=== PATIENT | male | born 1965 ===

== ENCOUNTER 2018-11-25 17:39 | Emergency (ER) | payer SELFPAY ==
[2018-11-25] MEDS ORDERED: NORCO 7.5/325 PO ONE (18:08)
--- NOTE | 2018-11-25 18:13 | Emergency Department Report ---
ED Male HPI - General Chief complaint: Pain General Stated complaint: HERNIA PAIN Time Seen by Provider: 11/25/18 18:00 Source: patient Mode of arrival: Stretcher Limitations: No Limitations - History of Present Illness Initial comments: 53-year-old male presents to the ED with complaint of right scrotal swelling and pain. Patient states he suspects it is his hernia. Patient reports onset of pain and swelling 2 days ago. MD Complaint: testicle pain, testicle swelling -: days(s) (2) Location: right testicle Radiation: none Severity: moderate Quality: sharp Consistency: constant Improves with: none Worsens with: palpation, movement swelling. denies: fever, nausea/vomiting - Related Data Home Medications Medication Instructions Recorded Confirmed Last Taken Benztropine (Nf) [Cogentin] 0.5 mg PO DAILY 06/10/14 06/10/14 Unknown Haloperidol [Haldol] 2 mg PO BID 06/10/14 06/10/14 Unknown NIFEdipine XL [Procardia Xl] 30 mg PO QDAY 06/10/14 06/10/14 06/08/14 Previous Rx's Medication Instructions Recorded Last Taken Type Ciprofloxacin HCl [Cipro] 500 mg PO BID #20 tablet 11/25/18 Unknown Rx Naproxen [Naprosyn] 500 mg PO BID #20 tablet 11/25/18 Unknown Rx Tramadol HCl [Ultram] 50 mg PO Q6HR PRN #7 tablet 11/25/18 Unknown Rx Allergies Allergy/AdvReac Type Severity Reaction Status Date / Time No Known Allergies Allergy Unverified 11/25/18 17:59 ED Review of Systems ROS: Stated complaint: HERNIA PAIN Other details as noted in HPI Constitutional: denies: chills, fever Gastrointestinal: denies: abdominal pain, nausea, vomiting Genitourinary: testicular pain, testicular mass ED Past Medical Hx - Past Medical History Previous Medical History?: Yes Hx Hypertension: Yes Hx Heart Attack/AMI: Yes Hx Congestive Heart Failure: No Hx Diabetes: No Hx Psychiatric Treatment: Yes (schizophrenia) Hx Asthma: No Hx COPD: No Additional medical history: inguinal hernia - Surgical History Past Surgical History?: Yes Additional Surgical History: hernia repair - Social History Smoking Status: Current Every Day Smoker Substance Use Type: Alcohol, Marijuana - Medications Home Medications: Home Medications Medication Instructions Recorded Confirmed Last Taken Type Benztropine (Nf) [Cogentin] 0.5 mg PO DAILY 06/10/14 06/10/14 Unknown History Haloperidol [Haldol] 2 mg PO BID 06/10/14 06/10/14 Unknown History NIFEdipine XL [Procardia Xl] 30 mg PO QDAY 06/10/14 06/10/14 06/08/14 History Ciprofloxacin HCl [Cipro] 500 mg PO BID #20 tablet 11/25/18 Unknown Rx Naproxen [Naprosyn] 500 mg PO BID #20 tablet 11/25/18 Unknown Rx Tramadol HCl [Ultram] 50 mg PO Q6HR PRN #7 tablet 11/25/18 Unknown Rx ED Physical Exam - General Limitations: No Limitations General appearance: alert, in no apparent distress - Head Head exam: Present: atraumatic, normocephalic - Eye Eye exam: Present: normal appearance - ENT ENT exam: Present: mucous membranes moist - Neck Neck exam: Present: normal inspection - Respiratory Respiratory exam: Present: normal lung sounds bilaterally. Absent: respiratory distress - Cardiovascular Cardiovascular Exam: Present: regular rate, normal rhythm - GI/Abdominal GI/Abdominal exam: Present: soft. Absent: distended, tenderness - exam: Present: scrotal swelling (R-sided) External exam: Absent: erythema, ecchymosis - Extremities Exam Extremities exam: Present: normal inspection - Neurological Exam Neurological exam: Present: alert, oriented X3 - Psychiatric Psychiatric exam: Present: normal affect, normal mood - Skin Skin exam: Present: warm, dry, intact, normal color. Absent: rash ED Course Vital Signs 11/25/18 11/25/18 11/25/18 17:48 17:52 18:00 Temperature 98.2 F Pulse Rate 75 68 Respiratory 16 17 Rate Blood Pressure 166/99 173/92 O2 Sat by Pulse 100 100 94 Oximetry 11/25/18 11/25/18 11/25/18 18:15 18:31 18:45 Temperature Pulse Rate 73 68 69 Respiratory 29 H 17 16 Rate Blood Pressure 173/92 173/92 173/92 O2 Sat by Pulse 96 96 96 Oximetry 11/25/18 11/25/18 11/25/18 19:29 19:31 19:45 Temperature Pulse Rate 68 69 67 Respiratory 13 14 15 Rate Blood Pressure 173/92 173/92 173/92 O2 Sat by Pulse 96 95 96 Oximetry 11/25/18 11/25/1819 20:00 20:15 20:31 Temperature Pulse Rate 67 74 65 Respiratory 14 14 15 Rate Blood Pressure 153/90 153/90 153/90 O2 Sat by Pulse 94 97 95 Oximetry 11/25/18 11/25/18 20:45 21:01 Temperature Pulse Rate 65 72 Respiratory 13 16 Rate Blood Pressure 153/90 146/104 O2 Sat by Pulse 97 97 Oximetry ED Medical Decision Making - Radiology Data Radiology results: report reviewed, image reviewed - Differential Diagnosis hernia, orchitis, epidydimitis Critical care attestation.: If time is entered above; I have spent that time in minutes in the direct care of this critically ill patient, excluding procedure time. ED Disposition Clinical Impression: Orchitis, Hydrocele Disposition: TO HOME OR SELFCARE Is pt being admited?: No Condition: Stable Instructions: Epididymo-orchitis (ED), Hydrocele (ED), Testicle Pain (ED) Prescriptions: Ciprofloxacin HCl [Cipro] 500 mg PO BID #20 tablet Naproxen [Naprosyn] 500 mg PO BID #20 tablet Tramadol HCl [Ultram] 50 mg PO Q6HR PRN #7 tablet PRN Reason: pain Referrals: PRIMARY CARE, [Primary Care Provider] - 3-5 Days LOUISA ROSE MD [Staff Physician] - 3-5 Days Time of Disposition: 20:35
[2018-11-25 20:20] LABS: Bilirubin,Urine NEG (Negative); Blood,Urine NEG (Negative); Color,Urine Straw (Yellow); Mucus,Urine FEW /HPF; Protein,Urine <15 mg/dL mg/dL (Negative); RBC,Urine < 1.0 /HPF (0.0-6.0); Urobilinogen,Urine < 2.0 mg/dL (<2.0)
--- NOTE | 2018-11-25 20:23 | Ultrasound Report ---
FINAL REPORT EXAM: US SCROTUM HISTORY: right scrotal swelling and pain TECHNIQUE: Grayscale, color flow and Doppler waveform imaging of the scrotal contents was performed. Comparison: None FINDINGS: Right scrotum: The right testicle demonstrates homogeneous echogenicity and measures 4.2 centimeters by 2.4 centimet ers x 3.1 centimeters in size. There is no demonstration of a focal mass. There is the appearance of increased flow in the right testicle on color-flow imaging which can be se en with orchitis. Arterial and venous flow is demonstrated in the right testicle utilizing color flow and Doppler wavef orm imaging. There is a large right hydrocele with septations which may changes of acute or chronic periorchitis. The right epididymis head measures 2 centimeters x 1 centimeters x 1.8 centimeters in size and is unr emarkable in appearance. Left scrotum: The left testicle demonstrates homogeneous echogenicity and measures 3.7 centimeters x 2.4 centimeter s x 2.5 centimeters in size. There are 2 small foci of decreased echogenicity in the left testicle th at measure approximately 3 millimeters in size. These are nonspecific in appearance but may represent changes of ectasia of the rete testis. Arterial and venous flow is demonstrated in the left testicle utilizing color flow and Doppler wavefo rm imaging. The left epididymis head measures 1.1 centimeter x 1.4 centimeter x 1.1 centimeter and is unremarkabl e in appearance. IMPRESSION: 1. Findings suggestive of right orchitis and periorchitis with large right hydrocele with septations. 2. No evidence of testicular torsion. 3. Small foci of decreased echogenicity left testicle that may represent changes of ectasia of the re te testis.
[2018-11-25] MEDS ORDERED: ROCEPHIN IM ONE (20:31)
[2018-11-25] MEDS ORDERED: XYLOCAINE 1% MPF 5 mL INFILTRATI ONE (20:31)
[2018-11-25] MEDS ORDERED: ZITHROMAX PO ONE (20:32)
[2018-11-25 21:11] VITALS: BP 146/104
== END 2018-11-25 21:23 | disposition home or self-care (01) ==
LOC: ED 17:39
DX: N45.2 Orchitis (principal); N43.3 Hydrocele, unspecified; I10 Essential (primary) hypertension; I25.2 Old myocardial infarction; F20.9 Schizophrenia, unspecified; F17.200 Nicotine dependence, unspecified, uncomplicated; F12.10 Cannabis abuse, uncomplicated
CPT/HCPCS: 76870; 81001; 96372; 99284; J0696

== ENCOUNTER 2019-02-02 10:44 | Observation (INO) | payer OTHER ==
[2019-02-02] MEDS ORDERED: ASPIRIN PO ONE (10:55)
[2019-02-02] MEDS ORDERED: ZOFRAN IV ONE (11:05)
[2019-02-02] MEDS ORDERED: NITROSTAT SL PRN (11:05)
[2019-02-02] MEDS ORDERED: PEPCID IV ONE (11:05)
[2019-02-02] MEDS ORDERED: SUBLIMAZE IV ONE (11:05)
--- NOTE | 2019-02-02 11:06 | Emergency Department Report ---
ED Chest Pain HPI - General Chief Complaint: Chest Pain Stated Complaint: CHEST PAIN Time Seen by Provider: 02/02/19 10:55 Source: patient, EMS (ems notes not available at time of chart dictation), RN notes reviewed Mode of arrival: Stretcher Limitations: No Limitations - History of Present Illness Initial Comments: This is a 53-year-old gentleman who does not have a local primary care doctor. He does not have a local care program director. His past medical history includes schizophrenia, reportedly maintained on Haldol, Cogentin, heart attack in 1995, coronary artery disease, daily aspirin use, no stent deployed. Patient presents to the emergency room today with complaint of nontraumatic epigastric and substernal chest pain. This started at 4:00 in the morning. There is no shortness of breath. There is no diaphoresis. There is positive nausea, vomiting. Positive daily aspirin use. No cocaine use. No DVT or pulmonary embolus risk factors. Patient given aspirin and nitroglycerin in the field, which reportedly improved his symptoms. Patient still having mild chest pain at this time. It does not radiate. MD Complaint: chest pain -: Gradual, hour(s) Onset: during rest Pain Location: substernal Pain Radiation: none Severity: mild Severity scale (0 -10): 4 Quality: aching Consistency: intermittent Improves With: nitroglycerin, medication-other, rest Worsens With: nothing re: nausea, vomting Treatments Prior to Arrival: aspirin, nitroglycerin Aspirin use within the Past 7 Days: (1) Yes - Related Data On Oral Contraceptives: No Home Medications Medication Instructions Recorded Confirmed Last Taken No Known Home Medications [No 02/02/19 02/02/19 Unknown Reported Home Medications] Allergies Allergy/AdvReac Type Severity Reaction Status Date / Time No Known Allergies Allergy Unverified 11/25/18 17:59 Heart Score - HEART Score History: Moderately suspicious EKG: Non-specific Age: 45-65 Risk factors: 1-2 risk factors Troponin: < normal limit HEART Score: 4 - Critical Actions Critical Actions: 4-6 pts:12-16.6% risk of adverse cardiac event. Should be ad mitted ED Review of Systems ROS: Stated complaint: CHEST PAIN Other details as noted in HPI Constitutional: malaise Eyes: denies: vision change ENT: denies: epistaxis Respiratory: denies: cough Cardiovascular: chest pain Gastrointestinal: nausea Genitourinary: denies: dysuria Musculoskeletal: denies: back pain Skin: denies: lesions Neurological: denies: weakness Psychiatric: denies: anxiety, depression, visual hallucinations, homicidal thoughts, suicidal thoughts ED Past Medical Hx - Past Medical History Previous Medical History?: Yes Hx Hypertension: Yes Hx Heart Attack/AMI: Yes (in 1995 (no stent placed)) Hx Congestive Heart Failure: No Hx Diabetes: No Hx Psychiatric Treatment: Yes (schizophrenia, bipolar) Hx Asthma: No Hx COPD: No Additional medical history: inguinal hernia - Surgical History Past Surgical History?: Yes Additional Surgical History: hernia repair - Social History Smoking Status: Unknown if ever smoked Substance Use Type: None - Medications Home Medications: Home Medications Medication Instructions Recorded Confirmed Last Taken Type No Known Home Medications [No 02/02/19 02/02/19 Unknown History Reported Home Medications] ED Physical Exam - General Limitations: No Limitations General appearance: alert, in no apparent distress - Head Head exam: Present: atraumatic, normocephalic - Eye Eye exam: Present: normal appearance, EOMI. Absent: nystagmus - ENT ENT exam: Present: normal exam, normal orophraynx, mucous membranes moist, normal external ear exam - Neck Neck exam: Present: normal inspection, full ROM. Absent: tenderness, meningismus - Respiratory Respiratory exam: Present: normal lung sounds bilaterally. Absent: respiratory distress - Cardiovascular Cardiovascular Exam: Present: regular rate, normal rhythm, normal heart sounds. Absent: bradycardia, tachycardia, irregular rhythm, systolic murmur, diastolic murmur, rubs, gallop - GI/Abdominal GI/Abdominal exam: Present: soft. Absent: distended, tenderness, guarding, rebound, rigid, pulsatile mass - Rectal Rectal exam: Present: deferred - Extremities Exam Extremities exam: Present: normal inspection, full ROM, other (2+ pulses noted in the bilateral upper, lower extremities. Compartments soft. No long bony tenderness. The pelvis is stable.). Absent: pedal edema, joint swelling, calf tenderness - Back Exam Back exam: Present: normal inspection, full ROM. Absent: tenderness, CVA tenderness (R), CVA tenderness (L), paraspinal tenderness, vertebral tenderness - Neurological Exam Neurological exam: Present: alert, CN II-XII intact, other (Extraocular movements intact. Tongue midline. No facial droop. Facial sensation intact to light touch in the V1, V2, V3 distribution bilaterally. 5 and 5 strength in 4 extremities.. Sensation is intact to light touch in 4 extremities.). Absent: motor sensory deficit - Psychiatric Psychiatric exam: Absent: homicidal ideation, suicidal ideation - Skin Skin exam: Present: warm, dry, intact, normal color. Absent: rash ED Course Vital Signs 02/02/19 02/02/19 10:48 11:38 Temperature 97.6 F Pulse Rate 63 60 Respiratory 14 12 Rate Blood Pressure 160/90 Blood Pressure 149/92 [Left] O2 Sat by Pulse 98 98 Oximetry - Reevaluation(s) Reevaluation #1: 02/02/19 11:47 Differential diagnosis, including but not limited to: GERD, gastritis, hiatal hernia, acute coronary syndrome, pneumonia Assessment and plan: 53-year-old gentleman, reported history of known ischemic cardiac disease, no local care program director, with typical symptoms, including chest pain, nausea, vomiting. He is not tachycardic, he is not hypoxic, he denies DVT, pulmonary embolus risk factors, the patient is low risk by well's criteria. He is given supportive medications in the field, and in the emergency room, and he reports that his chest pain is improved. Screening laboratory studies improved, clinically sober, patient is not psychiatrically decompensated. Recommend admission to the hospital for cardiac risk stratification. We will contact the hospital medicine team to arrange admission once his initial diagnostics have been resulted. Please note that there has been a significant delay in acquisition of the patient's ER EKG, in spite of this provider requesting to multiple nurses for EKG acquisition. His prehospital EKG is nonspecific, but not consistent with ST elevation myocardial infarction. Reevaluation #2: 02/02/19 12:26 Patient sleeping in stretcher, and is in no acute distress. Hospital physician is paged to arrange admission. Discussed with cardiology, Julio Cesar Murillo, whose group will follow in consultation to make recommendations on cardiac risk stratification. Reevaluation #3: 02/02/19 12:49 Dr Olmos to admit Dr Badillo of cardiology in to evaluate patient URIEL score - Uriel Score Age > 65: (0) No Aspirin use within the Past 7 Days: (1) Yes 3 or more CAD Risk Factors: (1) Yes 2 or more Angina events in past 24 hrs: (1) Yes Known CAD with more than 50% Stenosis: (0) No Elevated Cardiac Markers: (0) No ST Deviation Greater than 0.5mm: (0) No URIEL Score: 3 ED Medical Decision Making - Lab Data Result diagrams: 02/02/19 11:05 02/02/19 11:05 Vital Signs - 24 hr 02/02/19 02/02/19 10:48 11:38 Temperature 97.6 F Pulse Rate 63 60 Respiratory 14 12 Rate Blood Pressure 160/90 Blood Pressure 149/92 [Left] O2 Sat by Pulse 98 98 Oximetry Lab Results 02/02/19 Range/Units 11:05 WBC 4.1 L (4.5-11.0) K/mm3 RBC 5.27 H (3.65-5.03) M/mm3 Hgb 12.6 (11.8-15.2) gm/dl Hct 40.4 (35.5-45.6) % MCV 77 L (84-94) fl MCH 24 L (28-32) pg MCHC 31 L (32-34) % RDW 15.9 H (13.2-15.2) % Plt Count 184 (140-440) K/mm3 Lymph % (Auto) 16.8 (13.4-35.0) % Carter % (Auto) 4.2 (0.0-7.3) % Eos % (Auto) 0.1 (0.0-4.3) % Baso % (Auto) 0.7 (0.0-1.8) % Lymph # 0.7 L (1.2-5.4) K/mm3 Carter # 0.2 (0.0-0.8) K/mm3 Eos # 0.0 (0.0-0.4) K/mm3 Baso # 0.0 (0.0-0.1) K/mm3 Seg Neutrophils % 78.2 H (40.0-70.0) % Seg Neutrophils # 3.2 (1.8-7.7) K/mm3 - EKG Data -: EKG Interpreted by Me - EKG Data 02/02/19 12:27 EKG shows sinus bradycardia, normal axis, normal intervals, nonspecific ST abnormality V2, V3, biphasic T-wave in V4, V5, ST depression in V6, abnormal EKG , not consistent with ST elevation myocardial infarction, abnormal EKG. - Radiology Data Radiology results: pending, image reviewed interpreted by me: X-ray the chest, interpreted by me, no acute disease. Critical care attestation.: If time is entered above; I have spent that time in minutes in the direct care of this critically ill patient, excluding procedure time. ED Disposition Clinical Impression: Chest pain, History of coronary artery disease Disposition: OP ADMIT IP TO THIS HOSP Is pt being admited?: Yes Does the pt Need Aspirin: No (aspirin given in the field by EMS) Condition: Stable Instructions: Chest Pain (ED) Referrals: LASHAY MASCORRO MD [Primary Care Provider] - 3-5 Days
[2019-02-02 11:26] LABS: Basophils % (Auto) 0.7 % (0.0-1.8); Eosinophils % (Auto) 0.1 % (0.0-4.3); Hematocrit 40.4 % (35.5-45.6); Hemoglobin 12.6 gm/dl (11.8-15.2); Lymphocytes # (Auto) 0.7 K/mm3 (1.2-5.4); Lymphocytes % (Auto) 16.8 % (13.4-35.0); Mean Corpuscular HGB Conc 31 % (32-34); Mean Corpuscular Volume 77 fl (84-94); Monocytes # (Auto) 0.2 K/mm3 (0.0-0.8); Monocytes % (Auto) 4.2 % (0.0-7.3); Platelet Count 184 K/mm3 (140-440); Red Blood Count 5.27 M/mm3 (3.65-5.03); Red Cell Distribution Width 15.9 % (13.2-15.2)
[2019-02-02 11:54] LABS: BUN/Creatinine Ratio 13; Blood Urea Nitrogen 8 mg/dL (9-20); Calcium 8.9 mg/dL (8.4-10.2); Hemolysis Index 28
--- NOTE | 2019-02-02 11:58 | XRay Report ---
AP CHEST: HISTORY: chest pain AP view of the chest demonstrates a normal mediastinal and cardiac contour with clear lungs and normal bony and soft tissue structures. IMPRESSION: Unremarkable AP chest.
--- NOTE | 2019-02-02 13:34 | Consultation ---
History of Present Illness Consult date: 02/02/19 Requesting physician: CHRISTIANE HUANG Consult reason: chest pain History of present illness: The pt is a 53-year-old male with a past medical history of reported AMI in 1995 with no cath or intervention, HTN, HLP, tobacco use, ETOH use (drinks 12 pack beer a week), schizophrenia. He presented with complaints of chest pain since 4AM today. He describes his chest pain as a sharp intermittent substernal pain. The pain is associated with some nausea and vomiting. He denies any SOB, palpitations, diaphoresis, dizziness or syncope. Past History Past Medical History: acute NV, hypertension, hyperlipidemia Social history: smoking, alcohol abuse Medications and Allergies Allergies Allergy/AdvReac Type Severity Reaction Status Date / Time No Known Allergies Allergy Unverified 11/25/18 17:59 Home Medications Medication Instructions Recorded Confirmed Last Taken Type No Known Home Medications [No 02/02/19 02/02/19 Unknown History Reported Home Medications] Active Meds: Active Medications Nitroglycerin (Nitrostat) 0.4 mg SL .Q5MIN PRN PRN Reason: Chest Pain Review of Systems Constitutional: no weight loss, no weight gain, no fever, no chills, no sweats Ears, nose, mouth and throat: no ear pain, no nose pain, no sinus pressure, no sinus pain Cardiovascular: chest pain, no orthopnea, no palpitations, no rapid/irregular heart beat, no edema, no syncope, no lightheadedness, no shortness of breath, no dyspnea on exertion Respiratory: no cough, no shortness of breath, no dyspnea on exertion, no congestion, no wheezing, no pain on inspiration Gastrointestinal: nausea, vomiting, no abdominal pain, no diarrhea, no constipation, no change in bowel habits Genitourinary Male: no dysuria, no hematuria, no flank pain, no discharge, no urinary frequency, no urinary hesitancy Musculoskeletal: no neck stiffness, no neck pain, no shooting arm pain, no arm numbness/tingling, no low back pain, no shooting leg pain, no leg numbness/tin gling Integumentary: no rash, no pruritis, no redness, no sores, no wounds Neurological: no head injury, no paralysis, no weakness, no parathesias, no numbness, no tingling, no seizures, no syncope Psychiatric: no anxiety Endocrine: no cold intolerance, no heat intolerance Hematologic/Lymphatic: no easy bruising, no easy bleeding Allergic/Immunologic: no urticaria, no wheezing Physical Examination Vital Signs Temp Pulse Resp BP Pulse Ox 97.6 F 63 14 160/90 98 02/02/19 10:48 02/02/19 10:48 02/02/19 10:48 02/02/19 10:48 02/02/19 10:48 General appearance: no acute distress HEENT: Positive: PERRL, Normocephaly, Mucus Membranes Moist Neck: Positive: neck supple, trachea midline Cardiac: Positive: Reg Rate and Rhythm, S1/S2, Systolic Murmur Lungs: Positive: clear to auscultation Neuro: Positive: Grossly Intact, Cranial Nerve 2-12 Intact Abdomen: Positive: Soft. Negative: Tender Skin: Negative: Rash, Wound Musculoskeletal: No Pain Extremities: Absent: edema Results 02/02/19 11:05 02/02/19 11:05 CBC 02/02/19 Range/Units 11:05 WBC 4.1 L (4.5-11.0) K/mm3 RBC 5.27 H (3.65-5.03) M/mm3 Hgb 12.6 (11.8-15.2) gm/dl Hct 40.4 (35.5-45.6) % Plt Count 184 (140-440) K/mm3 Lymph # 0.7 L (1.2-5.4) K/mm3 [place] # 0.2 (0.0-0.8) K/mm3 Eos # 0.0 (0.0-0.4) K/mm3 Baso # 0.0 (0.0-0.1) K/mm3 Comprehensive Metabolic Panel 02/02/19 Range/Units 11:05 Sodium 136 L (137-145) mmol/L Potassium 4.2 (3.6-5.0) mmol/L Chloride 97.8 L (98-107) mmol/L Carbon Dioxide 27 (22-30) mmol/L BUN 8 L (9-20) mg/dL Creatinine 0.6 L (0.8-1.5) mg/dL Glucose 85 (75-100) mg/dL Calcium 8.9 (8.4-10.2) mg/dL - Imaging and Cardiology Echo: pending EKG: report reviewed, image reviewed EKG interpretations - Telemetry EKG Rhythm: Sinus Rhythm - EKG Sinus rhythms and dysrhythmias: sinus rhythm Myocardial infarction: anterior NV (old age or i, lateral NV (old age or in Assessment and Plan Optimize anti-ischemic regimen and anti-hypertensive regimen - no BB at this time in setting of sinus bradycardia. Obtain echo. Plan for lexiscan MPI stress test in AM. NPO after MN. The patient has been seen in conjunction with Dr. Hendricks who agrees with the assessment and plan of care. - Patient Problems (1) Chest pain Current Visit: Yes Status: Acute (2) History of NV (myocardial infarction) Current Visit: Yes Status: Chronic (3) HTN (hypertension) Current Visit: Yes Status: Chronic (4) Schizophrenia Current Visit: Yes Status: Chronic (5) Tobacco use Current Visit: Yes Status: Chronic (6) EtOH dependence Current Visit: Yes Status: Chronic
[2019-02-02] MEDS ORDERED: IMDUR PO SCH (14:00)
[2019-02-02 14:28] VITALS: BP 140/86
[2019-02-03] MEDS ORDERED: ASPIRIN PO SCH (10:00)
== END 2019-02-02 15:10 | disposition left against medical advice (07) ==
LOC: ED 10:44 → 4A 12:49
PROVIDERS: ADMIT Internal Medicine; ATTEND Internal Medicine
DX: R07.89 Other chest pain (principal); I10 Essential (primary) hypertension; E78.5 Hyperlipidemia, unspecified; F20.9 Schizophrenia, unspecified; F10.20 Alcohol dependence, uncomplicated; F17.200 Nicotine dependence, unspecified, uncomplicated; Z86.79 Personal history of other diseases of the circulatory system
CPT/HCPCS: 36415; 71045; 80048; 84484; 85025; 93005; 93010; 96374; 96375; 99284; G0378; J2405; J3010

== ENCOUNTER 2021-11-26 20:01 | Emergency (ER) | payer SELFPAY ==
[2021-11-26 20:18] VITALS: BP 162/103
[2021-11-26] MEDS ORDERED: ASPIRIN 325 MG TAB PO ONE (21:24)
[2021-11-26] MEDS ORDERED: GABAPENTIN 300 MG CAP PO ONE (21:25)
[2021-11-26] MEDS ORDERED: predniSONE 20 MG TAB PO ONE (21:25)
--- NOTE | 2021-11-26 22:04 | XRay Report ---
CHEST 1 VIEW 11/26/2021 8:57 PM INDICATION / CLINICAL INFORMATION: chest pain. COMPARISON: 02/02/2019 FINDINGS: SUPPORT DEVICES: None. HEART / MEDIASTINUM: No significant abnormality. LUNGS / PLEURA: No significant pulmonary or pleural abnormality. No pneumothorax. ADDITIONAL FINDINGS: No significant additional findings. IMPRESSION: 1. No acute findings. Signer Name: Modesto Walters MD Signed: 11/26/2021 10:00 PM Workstation Name: [id number]
[2021-11-26 22:08] LABS: Alanine Aminotransferase 13 units/L (7-56); Albumin 3.5 g/dL (3.9-5); Blood Urea Nitrogen 14 mg/dL (9-20); Calcium 7.9 mg/dL (8.4-10.2); Hemolysis Index 2
[2021-11-26 22:09] LABS: BUN/Creatinine Ratio 20
[2021-11-26 22:10] LABS: Basophils % (Auto) 0.5 % (0.0-1.8); Eosinophils # (Auto) 0.1 K/mm3 (0.0-0.4); Eosinophils % (Auto) 1.5 % (0.0-4.3); Lymphocytes # (Auto) 1.2 K/mm3 (1.2-5.4); Mean Corpuscular HGB Conc 30 % (32-34); Mean Corpuscular Volume 76 fl (84-94); Monocytes # (Auto) 0.5 K/mm3 (0.0-0.8); Platelet Count 192 K/mm3 (140-440); Red Blood Count 4.84 M/mm3 (3.65-5.03); Red Cell Distribution Width 16.7 % (13.2-15.2)
[2021-11-26 22:11] LABS: Hematocrit 36.6 % (35.5-45.6); Hemoglobin 11.1 gm/dl (11.8-15.2)
--- NOTE | 2021-11-27 02:07 | Emergency Department Report ---
ED General Adult HPI - General Chief complaint: Pain General Stated complaint: L side pain Source: EMS Mode of arrival: Stretcher Limitations: No Limitations - History of Present Illness Initial comments: Patient is a 56-year-old -[place] male with a history of bipolar di sorder, paranoid schizophrenia, hypertension, coronary artery disease status post acute WI and inguinal hernia presented to the ED with complaint of acute onset persistent nontraumatic left arm pain, left shoulder and left leg pain, lower back pain and left-sided chest pain for the last 2 days, worse in the last 12 hours. Patient denies dizziness, syncope, shortness of breath, fever, chills, nausea and vomiting, diarrhea, heavy lifting or fall, traumatic injury, headache, change in vision, dysuria, urinary frequency and urgency, abdominal pain, numbness and tingling weakness of upper and lower extremities bilaterally. MD Complaint: left arm pain, left-sided chest wall pain; left leg and lower back pain -: Sudden, days(s) (2) Location: chest (left-sided), back (lower), upper extremity (left), lower extremity (left) Radiation: non-radiation Severity scale (0 -10): 5 Quality: aching, sharp Consistency: constant Improves with: none Worsens with: movement Associated Symptoms: denies other symptoms, chest pain (left-sided chest wall pain). denies: confusion, cough, fever/chills, headaches, loss of appetite, malaise, nausea/vomiting, shortness of breath, weakness Treatments Prior to Arrival: none - Related Data Previous Rx's Medication Instructions Recorded Last Taken Type Baclofen 20 mg PO Q12H PRN #20 tablet 11/27/21 Unknown Rx Naproxen 500 mg PO Q12H PRN #20 tablet 11/27/21 Unknown Rx Allergies Allergy/AdvReac Type Severity Reaction Status Date / Time No Known Allergies Allergy Unverified 11/25/18 17:59 ED Review of Systems ROS: Stated complaint: L side pain Other details as noted in HPI Constitutional: denies: chills, fever Eyes: denies: eye pain, eye discharge, vision change ENT: denies: ear pain, throat pain Respiratory: cough. denies: shortness of breath, SOB with exertion, wheezing Cardiovascular: chest pain (left-sided). denies: palpitations, dyspnea on exertion, edema, paroxysmal nocturnal dyspnea Endocrine: no symptoms reported Gastrointestinal: denies: abdominal pain, nausea, vomiting, diarrhea Genitourinary: denies: urgency, dysuria Musculoskeletal: back pain (lower), arthralgia (left arm and shoulder pain; left leg pain), myalgia. denies: joint swelling Skin: denies: rash, lesions Neurological: denies: headache, weakness, paresthesias Psychiatric: denies: anxiety, depression Hematological/Lymphatic: denies: easy bleeding, easy bruising ED Past Medical Hx - Past Medical History Hx Hypertension: Yes Hx Heart Attack/AMI: Yes (in 1995 (no stent placed)) Hx Congestive Heart Failure: No Hx Diabetes: No Hx Psychiatric Treatment: Yes (schizophrenia, bipolar) Hx Asthma: No Hx COPD: No Additional medical history: inguinal hernia - Surgical History Past Surgical History?: Yes Additional Surgical History: hernia repair - Social History Smoking Status: Unknown if ever smoked Substance Use Type: None - Medications Home Medications: Home Medications Medication Instructions Recorded Confirmed Last Taken Type Baclofen 20 mg PO Q12H PRN #20 tablet 11/27/21 Unknown Rx Naproxen 500 mg PO Q12H PRN #20 tablet 11/27/21 Unknown Rx ED Physical Exam - General Limitations: No Limitations General appearance: alert, in no apparent distress - Head Head exam: Present: atraumatic, normocephalic, normal inspection - Eye Eye exam: Present: normal appearance, PERRL, EOMI Pupils: Present: normal accommodation - ENT ENT exam: Present: normal exam, normal orophraynx, mucous membranes moist, TM's normal bilaterally, normal external ear exam - Neck Neck exam: Present: normal inspection, full ROM. Absent: tenderness - Respiratory Respiratory exam: Present: normal lung sounds bilaterally, chest wall tenderness (Palpable reproducible left sided chest wall tenderness). Absent: respiratory distress, wheezes, rales, rhonchi, accessory muscle use, decreased breath sounds, prolonged expiratory - Cardiovascular Cardiovascular Exam: Present: regular rate, normal rhythm, normal heart sounds. Absent: systolic murmur, diastolic murmur, rubs, gallop - GI/Abdominal GI/Abdominal exam: Present: soft, normal bowel sounds. Absent: tenderness, guarding, rebound, rigid, hyperactive bowel sounds, hypoactive bowel sounds - Extremities Exam Extremities exam: Present: normal inspection, full ROM, tenderness (Palpable diffuse left arm and left lower leg tenderness), normal capillary refill. Absent: pedal edema, joint swelling, calf tenderness - Back Exam Back exam: Present: normal inspection, full ROM, tenderness (Palpable lumbosacral paraspinal musculoskeletal tenderness), muscle spasm, paraspinal tenderness. Absent: CVA tenderness (R), CVA tenderness (L), vertebral tenderness - Neurological Exam Neurological exam: Present: alert, oriented X3, CN II-XII intact, normal gait, reflexes normal - Psychiatric Psychiatric exam: Present: normal mood, flat affect. Absent: homicidal ideation, suicidal ideation - Skin Skin exam: Present: warm, dry, intact, normal color. Absent: rash ED Course Vital Signs 11/26/21 20:15 Temperature 98.2 F Pulse Rate 72 Respiratory 18 Rate Blood Pressure 162/103 [Right] O2 Sat by Pulse 98 Oximetry ED Medical Decision Making - Lab Data Result diagrams: 11/26/21 21:31 11/26/21 21:31 - Radiology Data Radiology results: report reviewed, image reviewed [facility] [address] [place] [address] XRay Report Signed Patient: DARRELL STARKS MR#: [id number] 2 : 1965 Acct:[id number] Age/Sex: 56 / M ADM Date: 11/26/21 Loc: ED Attending Dr: Ordering Physician: EDEL SHEPPARD Date of Service: 11/26/21 Procedure(s): XR chest 1V ap Accession Number(s): [id number] cc: EDEL SHEPPARD Fluoro Time In Minutes: CHEST 1 VIEW 11/26/2021 8:57 PM INDICATION / CLINICAL INFORMATION: chest pain. COMPARISON: 02/02/2019 FINDINGS: SUPPORT DEVICES: None. HEART / MEDIASTINUM: No significant abnormality. LUNGS / PLEURA: No significant pulmonary or pleural abnormality. No pneumothorax. ADDITIONAL FINDINGS: No significant additional findings. IMPRESSION: 1. No acute findings. Signer Name: Modesto Walters MD Signed: 11/26/2021 10:00 PM Workstation Name: [id number] Transcribed By: TL Dictated By: Modesto Walters MD Electronically Authenticated By: Modesto Walters MD Signed Date/Time: 11/26/212199 DD/ 2200 TD/TT: - Medical Decision Making This is a 56-year-old -[place] male with a history of bipolar disorder, paranoid schizophrenia, hypertension, coronary artery disease status post acute WI and inguinal hernia presented to the ED with complaint of acute onset persistent nontraumatic left arm pain, left shoulder and left leg pain, lower back pain and left-sided chest pain for the last 2 days, worse in the last 12 hours. In the ED, patient is alert and oriented x3 and is not in any distress. Patient is hemodynamically stable. Chest x-ray showed no acute cardiopulmonary abnormalities or pneumonitis. Lab test results were reviewed and are all nonactionable including initial and 3-hour troponin levels. EKG shows normal sinus rhythm with no ST or T wave abnormalities. Patient was treated in the ED for pain and observed. On reevaluation, patient's pain is well controlled medication. Patient's heart score is 3, and his symptoms are likely musculoskeletal following the reproducibility with physical exam. The serial troponin levels also unremarkable. Patient was therefore discharged home on pain medication and advised to follow-up with his primary care physician in 7 to 10 days for reevaluation. Patient is advised return to the ED immediately if symptoms get worse. - Differential Diagnosis ACS; PE; pneumonia; muscle strain; costochondritis; muscle spasm Critical care attestation.: If time is entered above; I have spent that time in minutes in the direct care of this critically ill patient, excluding procedure time. ED Disposition Clinical Impression: Nonspecific chest pain, Spasm of muscle of lower back, Acute costochondritis Muscle strain of left upper extremity Qualifiers: Encounter type: initial encounter Qualified Code(s): S46.912A - Strain of unspecified muscle, fascia and tendon at shoulder and upper arm level, left arm, initial encounter Disposition: HOME / SELF CARE / HOMELESS Is pt being admited?: No Does the pt Need Aspirin: No Condition: Stable Instructions: Costochondritis, [id number], Muscle Strain, [id number], Nonspecific Chest Pain, Adult, [id number]-[id number], Chest Wall Pain, Nlrb-[id number], Muscle Cramps and Spasms, [id number]-[id number] Additional Instructions: All lab test results were reviewed and are all nonactionable. Chest x-ray showed no acute cardiopulmonary abnormalities or pneumonitis. Your symptoms are likely musculoskeletal therefore take medication with food, drink plenty of fluids and follow-up with your primary care physician in 5 to 7 days for reevaluation. Return to the ED immediately if symptoms get worse. Prescriptions: Baclofen 20 mg PO Q12H PRN #20 tablet PRN Reason: Muscle Spasm Naproxen 500 mg PO Q12H PRN #20 tablet PRN Reason: Pain , Severe (7-10) Referrals: [facility] [Provider Group] - 3-5 Days Time of Disposition: 02:13 Print Language: FILIPINO
--- NOTE | 2021-11-27 12:20 | Electrocardiograph Report ---
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
== END 2021-11-27 04:45 | disposition home or self-care (01) ==
LOC: ED 20:01
DX: S46.912A Strain of unspecified muscle, fascia and tendon at shoulder and upper arm level, left arm, initial encounter (principal); R07.9 Chest pain, unspecified; M62.830 Muscle spasm of back; M94.0 Chondrocostal junction syndrome [Tietze]; I10 Essential (primary) hypertension; X58.XXXA Exposure to other specified factors, initial encounter; Y93.89 Activity, other specified; Y92.89 Other specified places as the place of occurrence of the external cause; Y99.8 Other external cause status
CPT/HCPCS: 36415; 71045; 80053; 84484; 85025; 93005; 99284; J7512

== ENCOUNTER 2022-02-21 09:32 | Emergency (ER) | payer SELFPAY ==
[2022-02-21 09:39] VITALS: BP 184/102
[2022-02-21] MEDS ORDERED: ACETAMINOPHEN 500 MG TAB PO ONE (09:59)
--- NOTE | 2022-02-21 09:59 | Emergency Department Report ---
ED Lower Extremity HPI - General Chief Complaint: Extremity Problem,Nontraumatic Stated Complaint: LT KNEE PAIN Time Seen by Provider: 02/21/22 09:58 Source: patient Mode of arrival: Ambulatory Limitations: No Limitations - History of Present Illness Initial Comments: Patient is a 56-year-old male that comes to the ER with bilateral knee pain. He has osteoarthritis. He reports that he is homeless. He is asking for food. He has a sister that lives nearby, but he does not stay with her. He denies fall or trauma. He states he has a history of arthritis Patient came to the ER via EMS for his knee pain -: Gradual, days(s) - Related Data Previous Rx's Medication Instructions Recorded Last Taken Type Baclofen 20 mg PO Q12H PRN #20 tablet 11/27/21 Unknown Rx Naproxen 500 mg PO Q12H PRN #20 tablet 11/27/21 Unknown Rx Allergies Allergy/AdvReac Type Severity Reaction Status Date / Time No Known Allergies Allergy Unverified 11/25/18 17:59 ED Review of Systems ROS: Stated complaint: LT KNEE PAIN Other details as noted in HPI Comment: All other systems reviewed and negative ED Past Medical Hx - Past Medical History Previous Medical History?: Yes Hx Hypertension: Yes Hx Heart Attack/AMI: Yes (in 1995 (no stent placed)) Hx Congestive Heart Failure: No Hx Diabetes: No Hx Psychiatric Treatment: Yes (schizophrenia, bipolar) Hx Asthma: No Hx COPD: No Additional medical history: inguinal hernia - Surgical History Past Surgical History?: Yes Additional Surgical History: hernia repair - Family History Family history: no significant - Social History Smoking Status: Never Smoker Substance Use Type: None - Medications Home Medications: Home Medications Medication Instructions Recorded Confirmed Last Taken Type Baclofen 20 mg PO Q12H PRN #20 tablet 11/27/21 Unknown Rx Naproxen 500 mg PO Q12H PRN #20 tablet 11/27/21 Unknown Rx ED Physical Exam - General Limitations: No Limitations General appearance: alert, in no apparent distress - Head Head exam: Present: atraumatic, normocephalic - Eye Eye exam: Present: normal appearance - ENT ENT exam: Present: mucous membranes moist - Neck Neck exam: Present: normal inspection - Respiratory Respiratory exam: Present: normal lung sounds bilaterally. Absent: respiratory distress - Cardiovascular Cardiovascular Exam: Present: regular rate, normal rhythm. Absent: systolic murmur, diastolic murmur, rubs, gallop - GI/Abdominal GI/Abdominal exam: Present: soft, normal bowel sounds - Rectal Rectal exam: Present: deferred - Extremities Exam Extremities exam: Present: normal inspection - Back Exam Back exam: Present: normal inspection - Neurological Exam Neurological exam: Present: alert, oriented X3 - Psychiatric Psychiatric exam: Present: normal affect, normal mood - Skin Skin exam: Present: warm, dry, intact, normal color. Absent: rash ED Course Vital Signs 02/21/22 09:36 Temperature 97.2 F L Pulse Rate 70 Respiratory 16 Rate Blood Pressure 184/102 [Left] O2 Sat by Pulse 96 Oximetry ED Lower Extremity MDM - Medical Decision Making Vital Signs 02/21/22 09:36 Temperature 97.2 F L Pulse Rate 70 Respiratory 16 Rate Blood Pressure 184/102 [Left] O2 Sat by Pulse 96 Oximetry Patient reports he is homeless. He has a sister in the area He is asking for food Patient has osteoarthritis of bilateral knees Patient has a history of hypertension he reports he is taking his blood pressure medicine Patient being discharged home with discharge plan of care including diet, activity, follow-up. I have given him a list of local shelters - Differential Diagnosis No trauma/arthritis/homelessness Critical care attestation.: If time is entered above; I have spent that time in minutes in the direct care of this critically ill patient, excluding procedure time. ED Disposition Clinical Impression: Arthritis, History of chronic hypertension, Homeless Disposition: 01 HOME / SELF CARE / HOMELESS Is pt being admited?: No Does the pt Need Aspirin: No Condition: Stable Instructions: Arthritis Additional Instructions: Continue your blood pressure medicine Follow-up with PCP referral below Referrals: ZHOU VARELA MD [Staff Physician] - 3-5 Days Time of Disposition: 10:04
== END 2022-02-21 10:49 | disposition home or self-care (01) ==
LOC: ED 09:32
DX: M13.80 Other specified arthritis, unspecified site (principal); I10 Essential (primary) hypertension; Z59.00 Homelessness unspecified
CPT/HCPCS: 99282